=== PATIENT | male | born 1960 | race Caucasian/White ===

== ENCOUNTER 2017-06-22 21:13 | Emergency (ER) | payer OTHER ==
[~2017-06-22] VITALS: Ht 170.2 cm; Wt 99.8 kg
--- NOTE | 2017-06-22 21:57 | PHYS DOC ---
Past History Past Medical History: Diabetes, Hypertension, Hypothyroid Past Surgical History: Tonsillectomy, Other Adult General Chief Complaint Chief Complaint: COUGH HPI HPI 57-year-old nonsmoking male patient with history of diabetes and hypertension and hypothyroidism and asthma complaining of dry cough and congestion with sore throat and fever up to 101 and myalgia and headache since yesterday that gradually getting worse. Patient states he had 1000 mg Tylenol at 4 PM. Patient denies sick contact. Review of Systems Review of Systems Constitutional: Reports fever and chills Eyes: Denies change in visual acuity, redness, or eye pain [] HENT: Reports nasal congestion and sore throat Respiratory: As cough and shortness of breath Cardiovascular: No additional information not addressed in HPI [] GI: Denies abdominal pain, nausea, vomiting, bloody stools or diarrhea [] : Denies dysuria or hematuria [] Musculoskeletal: Denies back pain or joint pain [] Integument: Denies rash or skin lesions [] Neurologic: Denies focal weakness or sensory changes , reports headache[] Endocrine: Denies polyuria or polydipsia [] All other systems were reviewed and found to be within normal limits, except as documented in this note. Allergies Allergies Allergies Coded Allergies Type Severity Reaction Last Updated Verified No Known Drug Allergies 06/22/17 No Physical Exam Physical Exam Constitutional: Well developed, well nourished, mild distress, non-toxic appearance. [] HENT: Normocephalic, atraumatic, bilateral external ears normal, oropharynx moist, no oral exudates, nose normal. [] Eyes: PERRLA, EOMI, conjunctiva normal, no discharge. [] Neck: Normal range of motion, no tenderness, supple, no stridor. [] Cardiovascular:Heart rate regular rhythm, no murmur [] Lungs & Thorax: Bilateral breath sounds clear to auscultation [] Abdomen: Bowel sounds normal, soft, no tenderness, no masses, no pulsatile masses. [] Skin: Warm, dry, no erythema, no rash. [] Back: No tenderness, no CVA tenderness. [] Extremities: No tenderness, no cyanosis, no clubbing, ROM intact, no edema. [] Neurologic: Alert and oriented X 3, normal motor function, normal sensory function, no focal deficits noted. [] Psychologic: Affect normal, judgement normal, mood normal. [] EKG EKG [] Radiology/Procedures Radiology/Procedures [] Course & Med Decision Making Course & Med Decision Making Pertinent Labs studies reviewed. (See chart for details) Evaluation of patient in ER showed 57-year-old male patient with cough and congestion and fever and myalgia for the last 2 days. Patient was afebrile in ER and treated with nebulizer treatment and hydrocodone and Tessalon and felt better. For test was negative and blood sugar was 167. Patient did not want to have IV line and blood test and wanted to try treatment for viral illness. Patient instructed to return to emergency room if not getting better. Dragon Disclaimer Dragon Disclaimer This electronic medical record was generated, in whole or in part, using a voice recognition dictation system. Departure Departure: Impression: Primary Impression: Viral syndrome Disposition: HOME, SELF-CARE (At 2245) Condition: IMPROVED Referrals: PCP,UNKNOWN (PCP) Patient Instructions: Viral Syndrome Additional Instructions: Drink plenty of liquids Follow-up with your primary care physician in 2 or 3 days 10 to emergency room if not feeling better Scripts Hydrocodone/Chlorphen P-Stirex (Tussionex Pennkinetic Susp) 115 Ml Denita.er.12h 5 ML PO BID, #120 ML Prov: MAG JOHNSON MD 06/22/17 Albuterol Sulfate (PROAIR HFA INHALER) 8.5 Gm Hfa.aer.ad 2 PUFF INH PRN Q6HRS Y for SHORTNESS OF BREATH, #1 INHALER 0 Refills Prov: MAG JOHNSON MD 06/22/17 MAG JOHNSON MD Jun 22, 2017 21:57
[2017-06-22] MEDS ORDERED: IPRATRPIUM/ALBUTEROL 0.5/2.5MG 3 ML NEBU. NEB ONE (22:15)
[2017-06-22] MEDS ORDERED: BENZONATATE 100 MG CAPSULE. PO ONE (22:15)
[2017-06-22] MEDS ORDERED: HYDROcodone/APAP 5/325MG 1 TAB TABLET PO ONE (22:15)
[2017-06-22 22:37] LABS: INFLUENZA A PATIENT NEGATIVE (NEGATIVE); INFLUENZA B PATIENT NEGATIVE (NEGATIVE)
[2017-06-22] MEDS ORDERED: HYDR115S2 PO (22:48)
[2017-06-22] MEDS ORDERED: ALBU8.5H8 INH (22:48)
[2017-06-22 23:00] VITALS: BP 144/67
== END 2017-06-22 23:01 | disposition home or self-care (01) ==
LOC: ER 21:13
DX: B34.9 Viral infection, unspecified (principal); I10 Essential (primary) hypertension; E11.9 Type 2 diabetes mellitus without complications; E03.9 Hypothyroidism, unspecified; J45.909 Unspecified asthma, uncomplicated
CPT/HCPCS: 82947; 87804; 94640; 99284; J7620